=== PATIENT | male | born 1950 | race Caucasian/White ===

== ENCOUNTER 2019-05-15 09:51 | Day surgery (SDC) | payer MEDICARE, BC ==
[~2019-05-15 09:51] MED LIST: Albuterol 0.083% 2.5 MG/3 ML Neb Soln NEB PRN; Lactated Ringers 1,000 ML IV SCH; Lidocaine 1% 8 ML ONE; Lidocaine 1%/Sod Bicarbonate in NS 8.4% 1 ML Syringe IDERM PRN; Propofol 200 MG/20 ML SDV ONE; Sodium Chloride 0.9% 10 ML Syringe FLUSH PRN
--- NOTE | 2019-05-15 10:36 | PCM.PREANE ---
Preanesthetic Assessment - Procedure Proposed Procedure: colonoscopy - Anesthesia/Transfusion/Family Hx Anesthesia History: Prior Anesthesia Without Reaction Family History of Anesthesia Reaction: No Transfusion History: No Prior Transfusion(s) Intubation History: Unknown - Review of Systems General: No Symptoms Pulmonary: No Symptoms Cardiovascular: No Symptoms Gastrointestinal: No Symptoms Neurological: No Symptoms Other: Reports: None - Physical Assessment NPO Status Date: 05/15/19 NPO Status Time: 23:30 Vital Signs: 1034 123/83, 76, 95 % Height: 1.83 m Weight: 94.347 kg ASA Class: 3 Mental Status: Alert & Oriented x3 Airway Class: Mallampati = 1 Dentition: Reports: Normal 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 ) Thyro-Mental Finger Breadths: 3 Mouth Opening Finger Breadths: 4 ROM/Head Extension: Full Lungs: Clear to Auscultation, Normal Respiratory Effort, Other (known right lung resection ) Cardiovascular: Regular Rate, Regular Rhythm - Allergies Allergies/Adverse Reactions: Allergies Allergy/AdvReac Type Severity Reaction Status Date / Time Penicillins Allergy Cannot Verified 05/14/19 11:14 Remember - Blood Blood Available: No - Anesthesia Plan Pre-Op Medication Ordered: None - Acknowledgements Anesthesia Type Planned: MAC Pt an Appropriate Candidate for the Planned Anesthesia: Yes Alternatives and Risks of Anesthesia Discussed w Pt/Guardian: Yes Pt/Guardian Understands and Agrees with Anesthesia Plan: Yes PreAnesthesia Questionnaire HEENT History: Reports: Impaired Vision, Other (See Below) Other HEENT History: wears glasses Cardiovascular History: Reports: None Respiratory History: Reports: Other (See Below) Other Respiratory History: lung nodules Gastrointestinal History: Reports: Colon Polyp, Other (See Below) Other Gastrointestinal History: tubular adenoma Genitourinary History: Reports: None FOUNDING PARTNER History: Reports: None Neurological History: Reports: None Psychiatric History: Reports: None Endocrine/Metabolic History: Reports: Hypothyroidism Hematologic History: Reports: None Immunologic History: Reports: None Oncologic (Cancer) History: Reports: Colon, Squamous Cell Carcinoma Dermatologic History: Reports: None - Past Surgical History Head Surgeries/Procedures: Reports: None Cardiovascular Surgical History: Reports: None Respiratory Surgical History: Reports: Lung Biopsies, Lung Resection, Thoracotomy, Other (See Below) Other Respiratory Surgeries/Procedures: bronchoscopy, wedge resection to RUL, pneumonectomy GI Surgical History: Reports: Colonoscopy, Other (See Below) Other GI Surgeries/Procedures: sigmoid colectomy, flex sigmoid Female Surgical History: Reports: None Male Surgical History: Reports: None Neurological Surgical History: Reports: None Musculoskeletal Surgical History: Reports: ORIF Other Musculoskeletal Surgeries/Procedures:: ORIF to right and left arms Oncologic Surgical History: Reports: None Dermatological Surgical History: Reports: None - SUBSTANCE USE Smoking Status *Q: Former Smoker Recreational Drug Use History: No - HOME MEDS Home Medications: Home Meds Fluticasone Propionate [Flonase Allergy Relief] 1 spray NASBOTH DAILY PRN [History] Cholecalciferol (Vitamin D3) [Vitamin D3] 2,000 unit PO DAILY 05/14/19 [History] Ibuprofen 200 - 800 mg PO Q6H PRN 05/14/19 [History] oxyCODONE HCl/Acetaminophen [Oxycodon-Acetaminophen 7.5-300] 1 tab PO Q6H PRN [History] - CURRENT (IN HOUSE) MEDS Current Meds: Current Medications Albuterol (Proventil Neb Soln) 2.5 mg NEB ONETIME PRN PRN Reason: bronchodilation Stop: 05/15/19 23:00 Lactated Ringer's (Ringers, Lactated) 1,000 mls @ 125 mls/hr IV ASDIRECTED PATRICIO Stop: 05/15/19 23:00 Lidocaine/Sodium Bicarbonate (Buffered Lidocaine 1% In Ns 8.4%) 0.25 ml IDERM ONETIME PRN PRN Reason: Prior to IV Start Stop: 05/15/19 23:00 Sodium Chloride (Saline Flush) 10 ml FLUSH ASDIRECTED PRN PRN Reason: Keep Vein Open Stop: 05/15/19 23:00 Discontinued Medications Lidocaine HCl (Xylocaine-Mpf 1%) Confirm Administered Dose 8 mls @ as directed .ROUTE .STK-MED ONE Stop: 05/15/19 07:48 Propofol (Diprivan 20 Ml) Confirm Administered Dose 400 mg .ROUTE .STK-MED ONE Stop: 05/15/19 07:48
--- NOTE | 2019-05-15 12:43 | PCM.SN ---
- Free Text/Narrative Note: called to ER for emergent intubation. upon appearance on non-rebreather and sats < 80%. decision made to obtain ABG before intubation. ABG returned and question of K+ level. stat potassium returned at 4.1, decision to intubate made. Ketamine, propofol, lidocaine and succinylcholine utilized. Doses charted by RN on Jul. First attempt poor view due to secretions and swelling/irritation in airway. 2nd attempt cords visualized poorly, better with cricoid pressure. ETT placed at 22 at gums, + BBS, + mist, +ETCo2. Tube secured by respiratory. Sats increased above 80%.
[2019-05-15] MEDS ORDERED: Propofol 200 MG/20 ML SDV ONE (13:28)
--- NOTE | 2019-05-15 14:02 | PCM48HPAN ---
Post Anesthesia Note - EVALUATION WITHIN 48HRS OF ANESTHETIC Vital Signs in Normal Range: Yes Patient Participated in Evaluation: Yes Respiratory Function Stable: Yes Airway Patent: Yes Cardiovascular Function Stable: Yes Hydration Status Stable: Yes Pain Control Satisfactory: Yes Nausea and Vomiting Control Satisfactory: Yes Mental Status Recovered: Yes Vital Signs: 111/64, 95%, 74, 16, 97.2 Last Vital Signs Temp 36.9 C 05/15/19 10:10 Pulse 76 05/15/19 10:10 Resp 16 05/15/19 10:10 BP 123/83 05/15/19 10:10 Pulse Ox 95 05/15/19 10:10
[2019-05-15 14:37] VITALS: BP 112/62; PULSE 72
--- NOTE | 2019-05-18 09:41 | PROC ---
DATE OF OPERATION: 05/15/2019 SURGEON: Bernie Escoto MD PREOPERATIVE DIAGNOSIS: PET avid lesion in the ascending colon. POSTOPERATIVE DIAGNOSIS: Ascending colon polyp. OPERATION PERFORMED: Colonoscopy with polypectomy. ESTIMATED BLOOD LOSS: Minimal. ANESTHESIA: Monitored anesthesia care. INDICATIONS AND CONSENT: The patient is a 69-year-old male with the history of colon cancer in the sigmoid colon, status post resection 9 years ago. The patient was recently found to have a tongue mass and underwent a PET scan that in addition to the mass in the right tongue, there was a small PET avid lesion in the ascending colon. Therefore, colonoscopy was recommended. The patient was evaluated in my clinic, and I offered him a colonoscopy. We discussed risks, benefits, and alternatives including bleeding and perforation, and informed consent was obtained. DESCRIPTION OF PROCEDURE: The patient was taken to the procedure room, placed in left lateral decubitus position. Following induction of monitored anesthesia care, procedure began. We began the procedure by perianal examination, which was normal. Digital rectal exam was also normal. We inserted a colonoscope and advanced it all the way to the cecum. The appendiceal orifice and the ileocecal valve were photographed. Then, the scope was withdrawn slowly, carefully inspecting the colonic mucosa. There was a 1.5 cm flat lesion in the mid ascending colon. This was difficult to get out without saline lift, therefore, saline injection was performed, and the lesion was removed in a piecemeal fashion. The polypectomy was complete. All the tissue were retrieved and sent for pathologic examination. The area was tattooed with black ink for future identification. EBL was minimal, and the polypectomy was performed with hot snare. Then, the scope was withdrawn slowly. I examined the remainder of the colon. There were no other polyps or any other lesions. Retroflexed views of the rectum were unremarkable. The air was suctioned, and colonoscopy was concluded. Of note, prep was excellent. The patient tolerated the procedure well. The patient was taken to the PACU for recovery postprocedure. I recommend a repeat colonoscopy and 6 months to re-evaluate the area of polypectomy pending pathology results. MMODAL /[id number]
== END 2019-05-15 14:37 | disposition home or self-care (01) ==
LOC: JD.SDS 09:51
PROVIDERS: ATTEND Surgery
DX: D12.2 Benign neoplasm of ascending colon (principal); E03.9 Hypothyroidism, unspecified; Z85.038 Personal history of other malignant neoplasm of large intestine; Z90.49 Acquired absence of other specified parts of digestive tract; Z79.51 Long term (current) use of inhaled steroids; Z79.891 Long term (current) use of opiate analgesic; Z79.1 Long term (current) use of non-steroidal anti-inflammatories (NSAID); Z88.0 Allergy status to penicillin; Z87.891 Personal history of nicotine dependence
CPT/HCPCS: 45380; 45381; J2001; J2704; J7120; 00812

== ENCOUNTER 2021-04-03 07:24 | Day surgery (SDC) | payer MEDICARE, BC ==
[~2021-04-03 07:24] MED LIST changes: -Albuterol 0.083% 2.5 MG/3 ML Neb Soln NEB PRN; -Lidocaine 1% 8 ML ONE; -Propofol 200 MG/20 ML SDV ONE
--- NOTE | 2021-04-03 08:02 | PCM.PREANE ---
Preanesthetic Assessment - Procedure Proposed Procedure: Colonoscopy - Anesthesia/Transfusion/Family Hx Anesthesia History: Prior Anesthesia Without Reaction Family History of Anesthesia Reaction: No Transfusion History: No Prior Transfusion(s) Intubation History: Unknown - Review of Systems General: No Symptoms Pulmonary: No Symptoms Cardiovascular: No Symptoms Gastrointestinal: Abdominal Pain (hunger) Neurological: Numbness (feet "from chemo") Other: Reports: Easy Bruising, Thyroid Problems (hypothyroid) - Physical Assessment NPO Status Date: 04/02/21 NPO Status Time: 00:00 Height: 1.85 m Weight: 85.729 kg ASA Class: 3 Mental Status: Alert & Oriented x3 Airway Class: Mallampati = 1 Dentition: Reports: Normal Dentition Thyro-Mental Finger Breadths: 3 Mouth Opening Finger Breadths: 3 ROM/Head Extension: Full Lungs: Clear to Auscultation, Normal Respiratory Effort Cardiovascular: Regular Rate, Regular Rhythm - Allergies Allergies/Adverse Reactions: Allergies Allergy/AdvReac Type Severity Reaction Status Date / Time Penicillins Allergy Cannot Verified 03/31/21 14:01 Remember - Blood Blood Available: No Product(s) Available: None - Anesthesia Plan Pre-Op Medication Ordered: None - Acknowledgements Anesthesia Type Planned: MAC Pt an Appropriate Candidate for the Planned Anesthesia: Yes Alternatives and Risks of Anesthesia Discussed w Pt/Guardian: Yes Pt/Guardian Understands and Agrees with Anesthesia Plan: Yes PreAnesthesia Questionnaire HEENT History: Reports: Impaired Vision, Other (See Below) Other HEENT History: wears glasses Cardiovascular History: Reports: None Respiratory History: Reports: Other (See Below) Other Respiratory History: lung nodules Gastrointestinal History: Reports: Colon Polyp, Other (See Below) Other Gastrointestinal History: tubular adenoma Genitourinary History: Reports: None STEM SIZER History: Reports: None Neurological History: Reports: Neuropathy, Peripheral Psychiatric History: Reports: None Endocrine/Metabolic History: Reports: Hypothyroidism Hematologic History: Reports: None Immunologic History: Reports: None Oncologic (Cancer) History: Reports: Colon, Squamous Cell Carcinoma Dermatologic History: Reports: None - Infectious Disease History Infectious Disease History: Reports: None - Past Surgical History Head Surgeries/Procedures: Reports: None HEENT Surgical History: Reports: Naso-Sinus Surgery Cardiovascular Surgical History: Reports: None Respiratory Surgical History: Reports: Lung Biopsies, Lung Resection, Thoracotomy, Other (See Below) Other Respiratory Surgeries/Procedures: bronchoscopy, wedge resection to RUL, pneumonectomy GI Surgical History: Reports: Colonoscopy, Other (See Below) Other GI Surgeries/Procedures: sigmoid colectomy, flex sigmoid Female Surgical History: Reports: None Male Surgical History: Reports: None Neurological Surgical History: Reports: None Musculoskeletal Surgical History: Reports: ORIF Other Musculoskeletal Surgeries/Procedures:: ORIF to right and left arms Oncologic Surgical History: Reports: None Dermatological Surgical History: Reports: None - SUBSTANCE USE Tobacco Use Status *Q: Former Tobacco User Tobacco Use Within Last Twelve Months: No, Snuff/Dip Second Hand Smoke Exposure: No Days Per Week of Alcohol Use: 1 Number of Drinks Per Day: 0 Total Drinks Per Week: 0 Recreational Drug Use History: No - HOME MEDS Home Medications: Home Meds Levothyroxine Sodium [Levothyroxine] 25 mcg PO DAILY 03/31/21 [History] - CURRENT (IN HOUSE) MEDS Current Meds: Current Medications Lactated Ringer's (Ringers, Lactated) 1,000 mls @ 125 mls/hr IV ASDIRECTED PATRICIO Stop: 04/03/21 23:00 Lidocaine/Sodium Bicarbonate (Lidocaine 1%/Sod Bicarbonate In Ns 8.4% 1 Ml Syringe) 0.25 ml IDERM ONETIME PRN PRN Reason: Prior to IV Start Stop: 04/03/21 18:00 Sodium Chloride (Sodium Chloride 0.9% 10 Ml Syringe) 10 ml FLUSH ASDIRECTED PRN PRN Reason: Keep Vein Open Stop: 04/03/21 18:00
[2021-04-03] MEDS ORDERED: Propofol 200 MG/20 ML SDV ONE ×6 (08:53→10:13)
[2021-04-03] MEDS ORDERED: fentaNYL 100 MCG/2 ML SDV ONE (08:54)
[2021-04-03] MEDS ORDERED: Lidocaine 1% 4 ML ONE (08:54)
[2021-04-03] MEDS ORDERED: Lactated Ringers 1,000 ML ONE (09:36)
--- NOTE | 2021-04-03 11:29 | PROC ---
DATE OF OPERATION: 04/03/2021 SURGEON: Bernie Escoto MD PREOPERATIVE DIAGNOSIS: Prior history of colon cancer and polyps. POSTOPERATIVE DIAGNOSIS: Multiple polyps in the colon. OPERATION PERFORMED: Colonoscopy. ESTIMATED BLOOD LOSS: Minimal. ANESTHESIA: Monitored anesthesia care. COMPLICATIONS: None. INDICATION AND CONSENT: The patient is a 71-year-old male with history of left-sided colon cancer status post resection in the past. The patient is undergoing colonoscopy for surveillance. In the last colonoscopy, there was a 1.5 cm polyp in the proximal ascending colon that was removed piecemeal. Therefore, another colonoscopy 6 months afterwards was recommended. The patient presented for repeat colonoscopy, but it has been several months since the last colonoscopy. We discussed risks, benefits, and alternatives for the procedure and informed consent was obtained. DETAILS OF PROCEDURE: The patient was taken to the procedure room, placed in the left lateral decubitus position. Monitored anesthesia care was induced. We began with perianal exam which was normal. Digital rectal exam was normal. The scope was placed and taken all the way to the cecum. Appendiceal orifice and ileocecal valve were photographed. An area of prior polypectomy which was tattooed at that time was examined, appeared to be normal. Right next to this area, there was another large about another 1.5 cm polyp present. Saline injection was performed and this polyp was also removed piecemeal using a hot snare. The removal was complete but challenging due to the polyp being on the flip side of colon plicae semilunaris. Melania Ink tattoo used to make the polypectomy area for easier future identification. In the cecum, there were two 1 to 2 mm polyps that were removed with cold forceps. In the hepatic flexure, there was a 6 mm pedunculated polyp that was removed with a hot snare. In the descending colon and rectum, there was one 2 mm polyp in each [address] that were removed with cold forceps. EBL was minimal. Then, at this point, all the samples were confirmed to be captured and the procedure was concluded after suctioning some air from the colon. The patient to be allowed to return home. The patient will need another surveillance colonoscopy in 6 months. MMALFREDO /[id number] CHONG
[2021-04-03 13:43] VITALS: BP 112/72; PULSE 60
== END 2021-04-03 12:37 | disposition home or self-care (01) ==
LOC: JD.SDS 07:24
PROVIDERS: ATTEND Surgery
DX: Z12.11 Encounter for screening for malignant neoplasm of colon (principal); D12.0 Benign neoplasm of cecum; D12.2 Benign neoplasm of ascending colon; D12.3 Benign neoplasm of transverse colon; K62.1 Rectal polyp; E03.9 Hypothyroidism, unspecified; G62.9 Polyneuropathy, unspecified; Z98.890 Other specified postprocedural states; Z85.038 Personal history of other malignant neoplasm of large intestine; Z88.0 Allergy status to penicillin; Z87.891 Personal history of nicotine dependence
CPT/HCPCS: 45380; 45381; 45385; 88305; J2704; J3010; J7120; 00811

== ENCOUNTER 2021-10-02 07:06 | Day surgery (SDC) | payer MEDICARE, BC ==
[~2021-10-02 07:06] MED LIST changes: +Lidocaine 1% 4 ML ONE; +Propofol 200 MG/20 ML SDV ONE; +Sodium Chloride 0.9% 10 ML Syringe FLUSH SCH
[2021-10-02] MEDS ORDERED: Propofol 200 MG/20 ML SDV ONE ×2 (08:50→09:20)
[2021-10-02 10:12] VITALS: BP 123/76; PULSE 62
== END 2021-10-02 10:10 | disposition home or self-care (01) ==
LOC: JD.SDS 07:06
PROVIDERS: ATTEND Surgery
DX: D12.2 Benign neoplasm of ascending colon (principal); G47.33 Obstructive sleep apnea (adult) (pediatric); E03.9 Hypothyroidism, unspecified; G62.9 Polyneuropathy, unspecified; Z98.890 Other specified postprocedural states; Z79.890 Hormone replacement therapy; Z88.0 Allergy status to penicillin; Z87.891 Personal history of nicotine dependence
CPT/HCPCS: 45380; J2704; J7120; 00812; 99100

== ENCOUNTER 2022-12-12 08:06 | Day surgery (SDC) | payer MEDICARE, BC ==
[~2022-12-12 08:06] MED LIST changes: -Lidocaine 1% 4 ML ONE; -Lidocaine 1%/Sod Bicarbonate in NS 8.4% 1 ML Syringe IDERM PRN; -Propofol 200 MG/20 ML SDV ONE
[2022-12-12] MEDS ORDERED: fentaNYL 100 MCG/2 ML SDV ONE (08:50)
[2022-12-12] MEDS ORDERED: Propofol 200 MG/20 ML SDV ONE (08:50)
[2022-12-12] MEDS ORDERED: Lactated Ringers 1,000 ML ONE (10:45)
[2022-12-12] MEDS ORDERED: Lactated Ringers 0 ML ONE (10:45)
[2022-12-12 12:03] VITALS: BP 119/72; PULSE 65
== END 2022-12-12 12:01 | disposition home or self-care (01) ==
LOC: JD.SDS 08:06
PROVIDERS: ATTEND Surgery
DX: Z12.11 Encounter for screening for malignant neoplasm of colon (principal); D12.2 Benign neoplasm of ascending colon; K64.9 Unspecified hemorrhoids; K21.9 Gastro-esophageal reflux disease without esophagitis; G62.9 Polyneuropathy, unspecified; E03.9 Hypothyroidism, unspecified; G47.33 Obstructive sleep apnea (adult) (pediatric); Z85.038 Personal history of other malignant neoplasm of large intestine; Z88.0 Allergy status to penicillin; Z87.891 Personal history of nicotine dependence; Z79.890 Hormone replacement therapy
CPT/HCPCS: 45380; J2704; J3010; J7120